=== PATIENT | female | born 2000 | race Caucasian/White ===

== ENCOUNTER 2025-02-28 23:41 | Emergency (ER) | payer BC, MEDICAID ==
[2025-02-28 23:43] VITALS: PULSE 81; O2SAT 100
== END 2025-03-01 00:29 | disposition home or self-care (01) ==
LOC: ER 23:41
DX: T78.49XA Other allergy, initial encounter (principal); J30.89 Other allergic rhinitis; X58.XXXA Exposure to other specified factors, initial encounter
CPT/HCPCS: 99281